=== PATIENT | female | born 1985 | race Caucasian/White ===

== ENCOUNTER 2020-07-11 17:15 | Observation (INO) | payer OTHER ==
[~2020-07-11 17:15] MED LIST: TRINATE TABLET1 EACH PO; TUMS200 MG PO
--- NOTE | 2020-07-11 18:43 | NUR ---
SWABBED BOTH NARES FOR RAPID COVID TEST
== END 2020-07-12 19:14 | disposition home or self-care (01) ==
LOC: FBCO 17:15 → FBC 17:50
PROVIDERS: ADMIT Obstetrics & Gynecology; ATTEND Obstetrics & Gynecology
DX: O9A.213 Injury, poisoning and certain other consequences of external causes complicating pregnancy, third trimester (principal); S99.812A Other specified injuries of left ankle, initial encounter; O62.4 Hypertonic, incoordinate, and prolonged uterine contractions; O24.414 Gestational diabetes mellitus in pregnancy, insulin controlled; Z3A.30 30 weeks gestation of pregnancy; W10.9XXA Fall (on) (from) unspecified stairs and steps, initial encounter; Z20.822 Contact with and (suspected) exposure to COVID-19
CPT/HCPCS: 81001; 87088; C9803; G0378; J1815; U0003

== ENCOUNTER 2020-09-13 09:49 | Inpatient (IN) | payer OTHER ==
[~2020-09-13] VITALS: Ht 170.2 cm; Wt 100.2 kg
--- NOTE | ~2020-09-13 | OR ---
[facility] [address] [place], [place] [address] Draft DATE OF OPERATION: 09/14/2020 SURGEON: Alisha Hart DO PREOPERATIVE DIAGNOSES: 1. Intrauterine at 39 weeks gestation. 2. Gestational diabetes mellitus, insulin dependent. 3. History of prior . POSTOPERATIVE DIAGNOSES: 1. Intrauterine at 39 weeks gestation. 2. Gestational diabetes mellitus, insulin dependent. 3. History of prior . 4. Dense pelvic adhesions. PROCEDURES PERFORMED: 1. Repeat low transverse delivery. 2. Extensive lysis of pelvic adhesions. 3. Cystoscopy. ESTIMATED BLOOD LOSS: 900 mL. ANESTHESIA: Spinal. ASSISTANTS: 1. Nicci Downing DO. 2. Jaime Rosas MD. COMPLICATIONS: None. FINDINGS: Viable female , born in the ROP position with no nuchal cord noted, weighing 8 pounds 10 ounces. Dense adhesions of the uterus to the anterior abdominal wall. However, the remainder of the uterus, the lower uterine segment myometrium are normal. Normal tubes and ovaries bilaterally. Some bleeding of the left ovarian artery that was made hemostatic with an O'Helix stitch. On cystoscopy, normal urethra, bladder with bilateral ureteral jets. PATIENT NAME: CHASTITY TRAVIS OPERATIVE REPORT DATE OF : 87 REPORT #: [id number] PHYSICIAN: ALISHA HART DO PCP: KATHRINE MICHELLE PA-C REPORT IS CONFIDENTIAL AND NOT TO BE RELEASED WITHOUT AUTHORIZATION [facility] [address] [place], [place] [address] Draft INDICATIONS: Ms. Travis is a very pleasant 35-year-old G2, P1-0-0-2 white female, who presented to Labor and Delivery for scheduled repeat low transverse delivery. was complicated by gestational diabetes, controlled with insulin and prior . Risks, benefits, and alternatives were discussed in detail with the patient. The patient understands and wishes to proceed with repeat delivery. DESCRIPTION OF PROCEDURE: The patient was taken to the operating room where a time-out was performed to confirm correct patient and correct procedure. Spinal anesthesia was adequately established. The patient was prepped in the supine position with a bump under the right hip and a Young catheter was inserted. Ancef 3 g were given preoperatively per skip protocol and no heparin was indicated. After confirming the spinal was adequate, a repeat Pfannenstiel incision was made, cutting through the old scar. Incision was carried down to the fascia where the fascia was nicked in the midline and fascial incision was extended bilaterally using curved Mason scissors. Fascia was grasped with Keerthi's elevated and the underlying rectus muscles dissected off bluntly and sharply. The rectus muscles were divided in the midline and attention was turned to the peritoneum. The peritoneum was noted to be densely scarred down to the anterior surface of the uterus. Careful dissection was made proceeding cephalic until clear space was noted at which time, the peritoneum was then entered sharply. Peritoneal incision was carefully extended cephalad caudad and the anterior uterus was freed of peritoneal adhesions. A bladder flap was then created and the bladder pushed well below the lower uterine segment. Peritoneal adhesions were still significantly dense on the lateral portions of the uterus. Hysterotomy was then performed using a surgical scalpel and hysterotomy was extended bilaterally using blunt dissection. Clear fluid was noted. Surgeon's hand was placed in the cavity and the head was elevated in the abdomen, delivered with the assistance of fundal pressure in the ROP position. No nuchal cord was identified. was vigorous and cried at delivery and cord was doubly clamped and cut as the was handed to the waiting pediatric team for further care. Cord blood was obtained for routine analysis. The placenta was manually expressed, intact with a centrally inserted 3-vessel cord. The uterine cavity was cleared of any remaining products of conception or clot. Some brisk bleeding was noted from the left edge extending into the broad ligament. This was made hemostatic with closure of the hysterotomy using 0 Monocryl in a running locked manner. A 2nd imbricating suture of 0 Monocryl was applied to the lower uterine segment. Brisk bleeding was again noted from the left edge of the uterus. The uterus was packed, pressure was held and Dr. Rosas presented to the operating room to provide additional retraction. The adherent pelvic peritoneum was carefully dissected to allow additional exposure of the left edge of the uterine corpus. Surgeon's hand was placed behind the broad ligament to help provide better visualization. An O'Helix stitch was then performed using 0 Monocryl with PATIENT NAME: CHASTITY TRAVIS OPERATIVE REPORT DATE OF : [birth year] REPORT #: [id number] PHYSICIAN: ALISHA HART DO PCP: KATHRINE MICHELLE PA-C REPORT IS CONFIDENTIAL AND NOT TO BE RELEASED WITHOUT AUTHORIZATION [facility] [address] [place], [place] [address] Draft excellent hemostasis appreciated. The pelvis was irrigated and made hemostatic with judicious use of Bovie electrocautery. The bladder was then backfilled to ensure integrity of the bladder. Very small superficial serosal rent was noted. Peritoneum overlying the bladder not involving the top bladder proper. This was imbricated using superficial suture of 3-0 chromic. The bladder was then decompressed. Pelvis examined and found to be hemostatic. Tisseel was applied to the lower uterine segment and to the anterior portion of the broad surface of the uterus. Peritoneum was then reapproximated using 2-0 Vicryl in a running nonlocked manner. Rectus was reapproximated using 0 Vicryl and 3 interrupted sutures after ensuring the rectus sustained hemostatic. Please note that ACell sheet was applied to the lower uterine segment prior to closing the peritoneum. Once the rectus was irrigated and found to be hemostatic, fascia was then reapproximated using 0 Monocryl in a running nonlocked manner. Subcu was reapproximated using 2-0 Vicryl in a running nonlocked manner. Skin was reapproximated using surgical yuan. The uterus was Crede'd for scant amount of fluid. The Young catheter was then removed and a flexible hysteroscope was placed in the urethral meatus and advanced under direct visualization into the bladder. Normal urethra and bladder were noted with excellent integrity. Bilateral ureteral jets were appreciated. The bladder was drained. Young catheter was reinserted and the patient was taken to the PACU in good and stable condition. Sponge, needle, and instrument count was correct x2 at the end of the procedure. Dr. Downing was present and participated in all portions of the procedure and Dr. Rosas presented for lysis of adhesions and during the crux of the procedure. DO AMANDA Philip/LISA /[id number] Copies: ~ PATIENT NAME: THADDEUSCHASTITYDeni WISE OPERATIVE REPORT DATE OF : 87 REPORT #: [id number] PHYSICIAN: ALISHA HART DO PCP: KATHRINE MICHELLE PA-C REPORT IS CONFIDENTIAL AND NOT TO BE RELEASED WITHOUT AUTHORIZATION
--- NOTE | 2020-09-14 09:38 | NUR ---
09/14/20 0938 Kalpana Guo 0930- PT ARRIVES TO [facility] ROOM #104 AWAKE AND TALKING. PT REPORTS NO PAIN, NAUSEA, OR DIZZINESS. RSEP EVEN AND UNLABORED. OXYGEN SAT HIGH 90'S TO 100% ON RA. 18G IV INFUSING LR WITH PITOCIN TO THE LEFT WRIST. PT REPORTS NO PAIN. PT'S SIGNIFICANT OTHER AT THE BEDSIDE. 0938- BABY TO RIGHT BREAST.
--- NOTE | 2020-09-15 12:43 | PR ---
[facility] [address] [facility] [place], [place] [address] Signed PP Progress Notes Datetime Report Generated by CPN: 09/15/2020 12:43 SUBJECTIVE: [id number] Pain: Within Normal Limits Nausea/Vomiting: Denies Flatus: Yes Bowel Movement: No Vital Signs: [id number] Vital Signs: Reviewed; Within Normal Limits Cardiovascular: Normal Respiratory: Normal Abdomen/Uterus: Normal Lochia: Normal CVA Tenderness: Normal Extremities: Normal Incision: Normal Progress: Abnormal Exam Comments: Fundus firm U-2 nontender. Incision not checked as pt up IMPRESSION/PLAN/PROCEDURES: [id number] Impression: Normal Progression Plan: Continue Present Management Progress Notes: Pt seen and evaluated. Doing well. Ambulating, voiding, and tolerating full diet. Pain and lochia minimal. Difficulties w/ and working w/ RN. No other questions or concerns. Anticipate d/c home Friday Signing Physician: Alisha Hart DO Copies: ~ *Electronically Signed* 09/15/20 1243 ALISHA HART DO PATIENT NAME: CHASTITY TRAVIS PROGRESS NOTE DATE OF : 87 PHYSICIAN: ALISHA HART DO RPT #: [id number] REPORT IS CONFIDENTIAL AND NOT TO BE RELEASED WITHOUT AUTHORIZATION
--- NOTE | 2020-09-16 09:00 | PR ---
[facility] [address] [facility] [place], [place] [address] Signed PP Progress Notes Datetime Report Generated by CPN: 09/16/2020 09:00 SUBJECTIVE: [id number] Pain: Within Normal Limits Nausea/Vomiting: Denies Flatus: Yes Bowel Movement: No Vital Signs: [id number] Vital Signs: Reviewed; Within Normal Limits Cardiovascular: Normal Respiratory: Normal Abdomen/Uterus: Normal Lochia: Normal CVA Tenderness: Normal Extremities: Normal Incision: Normal Progress: Normal Exam Comments: Fundus firm U-2 nontender. Incision healing nicely IMPRESSION/PLAN/PROCEDURES: [id number] Impression: Normal Progression Plan: Continue Present Management Progress Notes: Pt seen and examined. Doing better. Ambulating, voiding, and tolerating full diet. Moderately painful and lochia light. w/ supply difficulties. Desires d/c home tomorrow. Reviewed d/c instructions in detail. All questions anwered. Signing Physician: Alisha Hart DO Copies: ~ *Electronically Signed* 09/16/20 0900 ALISHA HART DO PATIENT NAME: CHASTITY TRAVIS PROGRESS NOTE DATE OF : 87 PHYSICIAN: ALISHA HART DO RPT #: [id number] REPORT IS CONFIDENTIAL AND NOT TO BE RELEASED WITHOUT AUTHORIZATION
--- NOTE | 2020-09-17 07:52 | PR ---
[facility] [address] [facility] [place], [place] [address] Signed PP Progress Notes Datetime Report Generated by CPN: 09/17/2020 07:52 SUBJECTIVE: [id number] Pain: Within Normal Limits Nausea/Vomiting: Denies Flatus: Yes Bowel Movement: No Vital Signs: [id number] Vital Signs: Reviewed; Within Normal Limits Cardiovascular: Normal Respiratory: Normal Abdomen/Uterus: Normal Lochia: Normal Vulva/Perineum: Not Done Breasts: Not Done CVA Tenderness: Normal Extremities: Normal Incision: Normal Progress: Normal Exam Comments: Fundus firm U-2 nontender IMPRESSION/PLAN/PROCEDURES: [id number] Impression: Normal Progression Plan: Discharge Progress Notes: Pt seen and examined. Doing well. Ambulating, voiding, and tolerating full diet. Pain and lochia minimal. . Ready for d/c home. Reviewed d/c instructions in detail. Signing Physician: Alisha Hart DO Copies: ~ *Electronically Signed* 09/17/20 0752 ALISHA HART DO PATIENT NAME: CHASTITY TRAVIS PROGRESS NOTE DATE OF : 87 PHYSICIAN: ALISHA HART DO RPT #: [id number] REPORT IS CONFIDENTIAL AND NOT TO BE RELEASED WITHOUT AUTHORIZATION
== END 2020-09-17 12:55 | disposition home or self-care (01) | DRG 788 ==
LOC: FBC 09-14 04:49
PROVIDERS: ADMIT Obstetrics & Gynecology; ATTEND Obstetrics & Gynecology
PROC: 0TJB8ZZ Inspection of Bladder, Via Natural or Artificial Opening Endoscopic (ICD-10-PCS; 2020-09-14)
PROC: 10D00Z1 Extraction of Products of Conception, Low, Open Approach (ICD-10-PCS; principal; 2020-09-14 06:45)
PROC: 0DNW0ZZ Release Peritoneum, Open Approach (ICD-10-PCS; 2020-09-14 06:45)
DX: O34.211 Maternal care for low transverse scar from previous cesarean delivery (principal); N85.8 Other specified noninflammatory disorders of uterus; Z3A.39 39 weeks gestation of pregnancy; Z37.0 Single live birth; O24.424 Gestational diabetes mellitus in childbirth, insulin controlled; N73.6 Female pelvic peritoneal adhesions (postinfective); O99.214 Obesity complicating childbirth; E66.9 Obesity, unspecified
CPT/HCPCS: 01961; 36415; 85027; J0690; J1100; J1650; J1885; J2001; J2274; J2300; J2405; J2590; J3010; J7121